=== PATIENT | female | born 1995 | race Caucasian/White ===

== ENCOUNTER → 2020-06-29 08:44 | Outpatient (BNVA) | payer MEDICAID, SELFPAY | PROVIDERS: Family Provider Nurse Practitioner Family; PCP Nurse Practitioner Family; Visit Provider Obstetrics & Gynecology | DX: R87.612 Low grade squamous intraepithelial lesion on cytologic smear of cervix (LGSIL) (principal); Z01.419 Encounter for gynecological examination (general) (routine) without abnormal findings | CPT/HCPCS: 80061; 83036; 88175 ==

== ENCOUNTER → 2021-06-26 13:33 | Outpatient (BNVA) | payer MEDICAID, SELFPAY | PROVIDERS: Family Provider Nurse Practitioner Family; PCP Nurse Practitioner Family; Visit Provider Obstetrics & Gynecology | DX: R87.612 Low grade squamous intraepithelial lesion on cytologic smear of cervix (LGSIL) (principal) | CPT/HCPCS: 88175 ==

== ENCOUNTER 2021-06-27 15:27 | Outpatient (CLI) | payer MEDICARE, MEDICAID, SELFPAY ==
--- NOTE | 2021-06-27 15:45 | USCV_ITS ---
Oumou Jessica Age: 25 Gender: F : 1995 Exam Date: 06/27/2021 15:59 Ordering Phys: Hernan Day M.D ([email or web address]) Technologist: Yaneli Elias [place] [facility] [place]: CONGENITAL MALFORMATION BP: 121 / 67 HR: 90 Rhythm: Sinus Technical Quality: Technically difficult study MEASUREMENTS (Male / Female) Normal Values 2D ECHO LV Diastolic Diameter PLAX 4.1 cm 4.2 - 5.9 / 3.9 - 5.3 cm LV Systolic Diameter PLAX 3.0 cm IVS Diastolic Thickness 1.1 cm 0.6 - 1.0 / 0.6 - 0.9 cm IVS Systolic Thickness 1.3 cm LVPW Diastolic Thickness 0.8 cm 0.6 - 1.0 / 0.6 - 0.9 cm LVPW Systolic Thickness 1.3 cm RV Chamber Size 3.4 cm LVOT Diameter 2.0 cm LV Ejection Fraction 2D Teich 53.6 % LV Ejection Fraction MOD 2C 45.8 % LV Ejection Fraction 2C AL 46.4 % LA Diameter 2.3 cm LA Width 2.5 cm LA Height 3.9 cm RA Width 3.1 cm RA Height 4.0 cm Aorta at Sinotubular Diameter 2.7 cm DOPPLER AV Peak Velocity 83.0 cm/s LVOT Peak Velocity 79.0 cm/s AV Area Cont Eq vti 3.2 cm squared AV Area Cont Eq pk 3.1 cm squared MV Area PHT 5.9 cm squared Mitral E to A Ratio 1.5 MV E' Velocity 49.0 cm/s Mitral E to MV E' Ratio 7.0 Mitral E to LV E' Lateral Ratio 6.6 Mitral E to LV E' Septal Ratio 7.6 TR Peak Velocity 192.0 cm/s TR Peak Gradient 14.8 mmHg TR Mean Velocity 142.4 cm/s TR Mean Gradient 8.9 mmHg TR Velocity Time Integral 44.7 cm TV Peak E Velocity 43.0 cm/s PV Peak Velocity 89.0 cm/s RV Acceleration Time 0.2 s RV Ejection Time 0.3 s RV AcT/ET 0.6 FINDINGS Left Ventricle Technically limited quality echocardiogram with poor ultrasonic windows. LV systolic function is borderline normal with EF of 50%. Regional wall motion abnormalities cannot be assessed because of poor visualization. Diastolic function is normal. No ventricular septal defect is seen. Septal motion is consistent with Hardick surgery. Right Ventricle Grossly normal Right Atrium Normal Left Atrium Normal Mitral Valve Grossly normal. No significant regurgitation or stenosis seen. Aortic Valve Grossly normal. No significant regurgitation or stenosis seen. Tricuspid Valve Grossly normal. Mild tricuspid regurgitation. Normal RVSP. Pulmonic Valve Mild pulmonic regurgitation is seen. Pericardium Normal Aorta Normal CONCLUSIONS This is technically limited quality echocardiogram because of poor ultrasonic windows. LV systolic function is borderline low with EF of 45 to 50%. Regional wall motion abnormalities cannot be assessed because of poor visualization. Septal motion consistent with prior cardiac surgery Diastolic function is normal. Mild tricuspid regurgitation and mild pulmonic regurgitation noted. Compared to prior echocardiogram from 12/2018, no significant changes are seen Hernan Day MD (Electronically Signed) Final Date: 01 July 2021 20:43 S
== END 2021-06-27 15:28 | disposition home or self-care (01) ==
PROVIDERS: PCP Nurse Practitioner Family; Visit Provider Internal Medicine
DX: Q24.9 Congenital malformation of heart, unspecified (principal); I07.1 Rheumatic tricuspid insufficiency
CPT/HCPCS: 93306

== ENCOUNTER 2022-06-20 14:18 | Emergency (ER) | payer MEDICARE, MEDICAID, SELFPAY ==
[2022-06-20 14:34] VITALS: BP 101/64; PULSE 119; RESP 14; TEMP 37.8; O2SAT 98; BMI 30.1
--- NOTE | 2022-06-20 14:56 | CT_ITS ---
WS: [id number] CT HEAD NONCONTRAST HISTORY: migraine headache, history of shunt TECHNIQUE: Contiguous axial imaging performed through the brain in 2.5 mm imaging. Bone and soft tiss ue windows. Sagittal and coronal reformats reviewed. All CT scans at [facility] use at least one of these dose optimization techniques: automated exposure control; mA and/or kV adjustment per pa tient size (includes targeted exams where dose is matched to clinical indication); or iterative recon struction. 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 There is a large cyst in the posterior fossa causing elevation of th e torcula. Very similar in appearance to the prior study. No midline shift or mass effect. No acute h emorrhage. No atrophy or prior infarcts or herniation. Ventricles: Ventricles are slitlike. RIGHT frontal IT SOFTWARE ENGINEER shunt catheter crosses the frontal lobe with t he tip terminating just to the LEFT of the interhemispheric falx. No change in position. The ventricl es are unchanged in size. Extracalvarial portion of the IT SOFTWARE ENGINEER shunt catheter is intact. Paranasal sinuses: As visualized are clear. Mastoid air cells: Well pneumatized. Calvarium and scalp: Skull is intact with no soft tissue edema or swelling. CT/CT head wo con* [id number] IMPRESSION: 1. No acute intracranial hemorrhage or edema. 2. 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 3. Slitlike lateral ventricles are unchanged. The RIGHT IT SOFTWARE ENGINEER shunt catheter marj ins in good position with no change since 12/09/2017.
--- NOTE | 2022-06-20 15:00 | ED_ITS ---
HPI - Headache General: Chief Complaint: Headache Stated Complaint: headache,n/v Time Seen by Provider: 06/20/22 14:40 History of Present Illness: Patient is a 26-year-old female comes to the ED with headache. Patient has a history of migraines, congenital heart disease and PCOS. She also has a history of ventricular shunt placement. Patient's headache started last night. Says it is similar to her all her past migraine headaches. Located in the frontal region of the head. She rates it currently a 10 out of 10. Endorses having nausea and vomiting with headache. Loud noises and bright lights make headache worse. Denies any vision changes, numbness/tingling to face or extremities or any weakness to face or extremities. Denies any recent head injuries. Patient says she has not had a head CT done in many years. Associated symptoms: Reports nausea and vomiting; Deny chest pain, fever(s) or rash Review of Systems Const: Denies: fever(s), chills or fatigue Eyes: Reports: photophobia; Denies: change in vision or eye discomfort ENMT: Denies: throat pain, odynophagia, nasal discharge or nasal congestion Card: Denies: chest pain, palpitations, edema, swelling of feet/ankles, dyspnea on exertion or orthopnea Resp: Denies: dyspnea, productive cough or non-productive cough GI: Reports: nausea and vomiting; Denies: abdominal pain, diarrhea, constipation or hematochezia : Denies: flank pain, dysuria or hematuria Musc: Denies: neck pain, back pain or extremity swelling Skin/Breast: Denies: rash or new lesions Neuro: Reports: headache(s); Denies: numbness in extremities or weakness in extremities PFSH ED PFSH: Medical History (Updated 06/20/22 @ 16:37 by SANDRA Parrish) Chronic headaches Congenital heart disease Status post surgery and she denies any symptoms at this time. Now follows up with Dr. Day in cardiology at [facility] No pertinent past medical history Denies diabetes, asthma, hypertension, seizures, DVT/PE PCP: Vy Stringer APRN in [place] PCOS (polycystic ovarian syndrome) Seizure-like activity Surgical History (Updated 12/12/21 @ 14:19 by Yovani uRst MD) S/P ventricular shunt placement The patient was placed secondary to hydrocephalus at the age of 3 months. She states that she has not had to have this replaced and is doing well with this. 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 She does not know details of surgery. Family History Grandmother Diabetes maternal Father Hypertension Family/Other Breast cancer maternal aunt, diagnosed in her 70s Denies family history of Colon cancer Ovarian cancer Heart disease Hyperlipidemia Uterine cancer Thyroid condition Stroke Social History Smoking and tobacco status: never smoked Alcohol intake: never Physical Exam Const: COMMON NORMALS: no acute distress, patient oriented x3 and alert GENERAL APPEARANCE: cooperative and comfortable HENMT: COMMON NORMALS: normocephalic HEAD & SCALP: normocephalic MOUTH: Normal oral and palatal mucosa present THROAT: posterior oropharynx normal and uvula midline Eye: COMMON NORMALS: Equal, round and reactive pupils present and EOMs intact bilaterally GENERAL EYE: appearance normal, both eyes and all related structures PUPIL: Yes Equal, round and reactive pupils present Neck/C-Spine: COMMON NORMALS: supple GENERAL: Yes normal visual inspection Lymph: LYMPHATIC: no lymphadenopathy noted Resp: COMMON NORMALS: normal respiratory effort, No retractions, No use of accessory muscles and clear to auscultation bilaterally AUSCULTATION: clear to auscultation bilaterally Cardio: COMMON NORMALS: regular rate, regular rhythm, S1 normal heart sound present, S2 normal heart sound present, No gallops present (Cardio), No clicks present (Cardio), No murmurs present (Cardio) and Peripheral pulses 2+ throughout RATE: regular rate RHYTHM: regular rhythm HEART SOUNDS: S1 normal heart sound present and S2 normal heart sound present PERIPHERAL PULSES: Peripheral pulses 2+ throughout GI: COMMON NORMALS: Normal to inspection, nondistended, normoactive bowel sounds present, Soft to palpation, non-tender and no masses PALPATION: Yes Soft to palpation : COMMON NORMALS: Yes no CVA tenderness BLADDER/KIDNEY EXAM: Yes no CVA tenderness Back/Pelvis: COMMON NORMALS: no CVA tenderness Extremity: GENERAL: Yes normal exam except as noted Neuro: COMMON NORMALS: patient oriented x3, CN's II-XII intact bilaterally, moves all extremities, no focal motor deficits and no sensory deficits noted SENSORIUM/ORIENTATION: Yes alert SPEECH: speech normal GAIT: Yes Normal gait present SENSORY EXAM: Yes extremities (intact) MOTOR EXAM: 5/5 motor strength present throughout Skin: COMMON NORMALS: no rashes or lesions noted GENERAL SKIN EXAM: no rashes or lesions noted and dry skin Course Vital Signs: Vital signs: Vital Signs Temperature 100.0 F H 06/20/22 14:34 Pulse Rate 119 H 06/20/22 14:34 Respiratory Rate 14 06/20/22 14:34 Blood Pressure 101/64 06/20/22 14:34 Pulse Oximetry 98 06/20/22 14:34 Oxygen Delivery Me thod 06/20/22 14:34 MDM - Headache Medical Decision Making Patient is a 26-year-old female comes to the ED with headache. Patient has a history of migraines, congenital heart disease and PCOS. She also has a history of ventricular shunt placement. Patient says her migraine headache is like her previous migraines. Patient says she has not had a CT of her head done in many years. Vitals are stable. Exam of patient is benign. Neuro exam showed no deficits. Head CT showed no acute findings and it showed a stable Dandy-Walker malformation and right COST COORDINATOR shunt remains intact. Patient was given IV fluids, Reglan, Toradol, Decadron and Benadryl. Her headache improved greatly and it was more manageable. She was diagnosed with migraine headache and was discharged home. Told to follow-up with PCP within the next week for reevaluation. Return to ED precautions given. Patient understood and agreed with plan. Lab Data Radiology Impressions Head CT 06/20/22 14:56 IMPRESSION: 1. No acute intracranial hemorrhage or edema. 2. 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 3. Slitlike lateral ventricles are unchanged. The RIGHT COST COORDINATOR shunt catheter remains in good position with no change since 12/09/2017. Discharge Plan Discharge Patient Disposition: Home Clinical Impression: Migraine headache Qualifiers: Migraine type: without aura Status migrainosus presence: without status migrainosus Intractability: not intractable Qualified Code(s): G43.009 - Migraine without aura, not intractable, without status migrainosus Condition: Stable Prescriptions: No Action norethindrone-e.estradiol-iron [June FE 09/14 (28)] 1 mg-20 mcg (21)/75 mg (7) tablet 1 tab PO DAILY Qty: 28 0RF Discharge Orders: Discharge ED (Routine); Ordered 06/20/22 Ordered By: Damaso Umanzor Referrals: Yovani Rust MD [Primary Care Provider] - Discharge Diet: Regular Discharge Activity: Resume usual activity Patient Instructions: Migraine Headache (ED) Activity Restrictions/Additional Instructions: Follow-up with medical provider as directed in the next 5 to 7 days reevaluation. Continue taking all home medications as previously prescribed. Return to the ER or your medical provider if condition worsens. Please read and understand discharge instructions. Thank you for choosing [facility] for your healthcare needs today. Please realize this is an emergency room and that we are providing you with a medical screening exam and this may not be complete and all inclusive of all the testing and or work up that you may need to determine your ailment or severity of your illness. It is very important that you follow up as instructed or that you return to the Emergency Department should you have concerns or if your co ndition changes or worsens in any way. 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
[2022-06-20] MEDS: sodium chloride 0.9% 500 ML 999 ML IV (15:34)
[2022-06-20] MEDS: diphenhydrAMINE 50 mg/mL SDV 1mL 25 MG IVP (15:48)
[2022-06-20] MEDS: dexamethasone 10 mg/mL INJ IVP (15:48)
[2022-06-20] MEDS: ketorolac 30 mg/mL INJ IVP (15:49)
[2022-06-20] MEDS: metoclopramide 5 mg/mL SDV 2 mL 10 MG IVP (15:49)
== END 2022-06-20 16:53 | disposition home or self-care (01) ==
PROVIDERS: Emergency Provider Physician Assistant; PCP Family Medicine Adult Medicine
DX: G43.009 Migraine without aura, not intractable, without status migrainosus (principal)
CPT/HCPCS: 70450; 96361; 96374; 96375; 99284; J1100; J1200; J1885; J2765; J7040

== ENCOUNTER → 2022-08-21 08:34 | Outpatient (BNVA) | payer MEDICARE, MEDICAID, SELFPAY | PROVIDERS: PCP Family Medicine Adult Medicine; Visit Provider Nurse Practitioner Women's Health | DX: R10.2 Pelvic and perineal pain (principal) | CPT/HCPCS: 76830 ==

== ENCOUNTER → 2023-01-10 12:47 | Outpatient (BNVA) | payer MEDICARE, MEDICAID, SELFPAY | PROVIDERS: PCP Family Medicine Adult Medicine; Referring Provider Family Medicine Adult Medicine; Visit Provider Specialist | DX: G43.711 Chronic migraine without aura, intractable, with status migrainosus (principal); Q03.1 Atresia of foramina of Magendie and Luschka; Q07.8 Other specified congenital malformations of nervous system; Q24.9 Congenital malformation of heart, unspecified; Z98.2 Presence of cerebrospinal fluid drainage device; R25.1 Tremor, unspecified; R53.83 Other fatigue | CPT/HCPCS: 99205 ==

== ENCOUNTER → 2023-02-14 10:22 | Outpatient (BNVA) | payer MEDICARE, MEDICAID, SELFPAY | PROVIDERS: PCP Family Medicine Adult Medicine; Visit Provider Specialist | DX: G43.711 Chronic migraine without aura, intractable, with status migrainosus (principal); Z98.2 Presence of cerebrospinal fluid drainage device; Q07.8 Other specified congenital malformations of nervous system; Q03.1 Atresia of foramina of Magendie and Luschka; G80.9 Cerebral palsy, unspecified | CPT/HCPCS: 99214 ==

== ENCOUNTER → 2023-04-29 13:07 | Outpatient (BNVA) | payer MEDICARE, MEDICAID, SELFPAY | PROVIDERS: PCP Family Medicine Adult Medicine; Visit Provider Registered Nurse Neonatal Intensive Care | DX: J02.9 Acute pharyngitis, unspecified (principal); B34.9 Viral infection, unspecified | CPT/HCPCS: 87880 ==

== ENCOUNTER → 2023-06-12 10:19 | Outpatient (BNVA) | payer MEDICARE, MEDICAID, SELFPAY | PROVIDERS: PCP Family Medicine Adult Medicine; Visit Provider Specialist | DX: G43.711 Chronic migraine without aura, intractable, with status migrainosus (principal); G80.9 Cerebral palsy, unspecified; H91.90 Unspecified hearing loss, unspecified ear | CPT/HCPCS: 99213 ==

== ENCOUNTER → 2023-07-08 15:02 | Outpatient (BNVA) | payer MEDICARE, MEDICAID, SELFPAY | PROVIDERS: PCP Family Medicine Adult Medicine; Visit Provider Family Medicine | DX: E28.2 Polycystic ovarian syndrome (principal); Q03.1 Atresia of foramina of Magendie and Luschka; Q24.9 Congenital malformation of heart, unspecified; R56.9 Unspecified convulsions; Z13.29 Encounter for screening for other suspected endocrine disorder | CPT/HCPCS: 80053; 84439; 84443; 85025 ==

== ENCOUNTER 2023-07-22 11:42 | Outpatient (CLI) | payer MEDICARE, MEDICAID, SELFPAY ==
--- NOTE | 2023-07-22 11:46 | CT_ITS ---
WS: [id number] CT HEAD TECHNIQUE: Noncontrast and contrast-enhanced CT of the head. CLINICAL INFORMATION: MIXED CONDUCTIVE SENSORINEURAL HEARING LOSS COMPARISON: CT 06/20/2022 DLP: 1919.[address] scans at [facility] use at least one of these dose optimization techniques: automated e xposure control; mA and/or kV adjustment per patient size (includes targeted exams where dose is matc hed to clinical indication); or iterative reconstruction. FINDINGS: No evidence intracranial hemorrhage or mass effect. Ventricular system and basal cisterns are patent. RIGHT frontal shunt catheter with tip at the foramen of Garcia. No hydrocephalus. No abnormal intracranial enhancement. 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 Elevation of the torcula. Paranasal sinuses are well aerated. Mastoid air cells are well aerated. No abnormal intracranial enha ncement. IMPRESSION: 1. Stable RIGHT frontal shunt catheter with tip at the foramen of Monro. No hydrocephalus. 2. No abnormal intracranial enhancement. 3. 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
[2023-07-22] MEDS: iohexol 350 mg/mL 500 mL Btl (per mL) IV (12:10)
== END 2023-07-22 11:43 | disposition home or self-care (01) ==
LOC: RAD 11:42
PROVIDERS: PCP Family Medicine; Visit Provider Otolaryngology
DX: H90.8 Mixed conductive and sensorineural hearing loss, unspecified (principal); H90.5 Unspecified sensorineural hearing loss
CPT/HCPCS: 70470; Q9967

== ENCOUNTER → 2023-11-29 14:39 | Outpatient (BNVA) | payer MEDICARE, MEDICAID, SELFPAY | PROVIDERS: PCP Family Medicine; Visit Provider Nurse Practitioner Women's Health | DX: Z12.4 Encounter for screening for malignant neoplasm of cervix (principal); N93.9 Abnormal uterine and vaginal bleeding, unspecified; Z01.419 Encounter for gynecological examination (general) (routine) without abnormal findings; E28.2 Polycystic ovarian syndrome; L73.2 Hidradenitis suppurativa | CPT/HCPCS: 88175 ==

== ENCOUNTER → 2024-06-02 09:31 | Outpatient (BNVA) | payer MEDICARE, MEDICAID, SELFPAY | PROVIDERS: PCP Family Medicine; Visit Provider Specialist | DX: G43.711 Chronic migraine without aura, intractable, with status migrainosus (principal); G80.9 Cerebral palsy, unspecified | CPT/HCPCS: 99213 ==

== ENCOUNTER → 2024-11-16 08:39 | Outpatient (BNVA) | payer MEDICARE, MEDICAID, SELFPAY | PROVIDERS: PCP Family Medicine; Visit Provider Specialist | DX: G43.711 Chronic migraine without aura, intractable, with status migrainosus (principal); G80.9 Cerebral palsy, unspecified | CPT/HCPCS: 99213 ==

== ENCOUNTER 2024-11-25 15:23 | Emergency (ER) | payer MEDICARE, MEDICAID, SELFPAY ==
[2024-11-25] VITALS (7 sets, daily range): BP systolic 115–121; BP diastolic 69–87; PULSE 79–103; RESP 16–18; TEMP 37.1; O2SAT 97–100
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
[2024-11-25 16:30] LABS: Basophils % 0.2 %; Eosinophils # 0.1 10^3/uL (0.0-0.8); Eosinophils % 0.5 %; Hematocrit 40.7 % (36-47); Lymphocytes # 2.1 10^3/uL (0.8-4.8); Lymphocytes % 21.7 %; Mean Corpuscular HGB Conc 33.9 g/dL (30-55); Mean Corpuscular Hemoglobin 31.7 pg (27-33); Mean Corpuscular Volume 93.3 fl (85-98); Mean Platelet Volume 10.1 fL (7.4-10.4); Monocytes # 0.5 10^3/uL (0.2-0.9); Monocytes % 5.1 %; Neutrophils % 72.2 %; Nucleated Red Blood Cells % 0 %; Platelet Count 266 10^3/cmm (157-399); Red Blood Count 4.36 10^6/uL (3.85-5.65); Red Cell Distribution Width 11.2 % (12.1-15.1); White Blood Count 9.69 10^3/uL (3.29-11.43)
[2024-11-25 16:48] LABS: Alanine Aminotransferase 16 U/L (0-33); Albumin Level 4.2 g/dL (3.5-5.2); Alkaline Phosphatase 60 U/L (35-105); Aspartate Amino Transferase 17 U/L (0-32); Blood Urea Nitrogen 15 mg/dL (6-20); Calcium 9.1 mg/dL (8.5-10.5); Carbon Dioxide 22 mmol/L (22-29); Chloride 102 mmol/L (98-107); Globulin 3.4 g/dL (1.3-4.6); Glomerular Filtration Rate 86.7 mL/min (90-130); Glucose 89 mg/dL (65-115); Osmolality Calculated 282 mOsm/kg (285-295); Sodium 136 mmol/L (136-145); Total Bilirubin 0.2 mg/dL (0.15-1.2); Total Protein 7.6 g/dL (6.6-8.7)
[2024-11-25 16:53] LABS: Creatine Phosphokinase 335 U/L (26-192)
[2024-11-25] MEDS: sodium chloride 0.9% 1,000 ML 999 ML IV (17:30)
[2024-11-25 18:57] LABS: Creatine Phosphokinase 569 U/L (26-192)
== END 2024-11-25 19:20 | disposition home or self-care (01) ==
PROVIDERS: Emergency Provider Physician Assistant; PCP Family Medicine
DX: S09.8XXA Other specified injuries of head, initial encounter (principal); V89.2XXA Person injured in unspecified motor-vehicle accident, traffic, initial encounter
CPT/HCPCS: 36415; 70450; 72125; 80053; 82550; 85025; 96360; 99284; J7030